=== PATIENT | male | born 1945 | race Caucasian/White ===

== ENCOUNTER 2023-08-12 08:03 | Outpatient (CLI) | payer MEDICARE ==
[2023-08-12] MEDS ORDERED: Iopamidol-370 76% 500 ML MDV (1 ML CHARGE) ONE (13:21)
== END 2023-08-12 08:04 | disposition home or self-care (01) ==
LOC: BICCT 08:03
PROVIDERS: ATTEND Internal Medicine
DX: K62.89 Other specified diseases of anus and rectum (principal)
CPT/HCPCS: 74177; 82565; Q9967

== ENCOUNTER 2025-05-19 08:21 | Outpatient (CLI) | payer OTHER ==
[2025-05-19 08:52] LABS: Estimated GFR - POC 77.0
[2025-05-19] MEDS ORDERED: Iopamidol 370 76% 100 ML VIAL ONE (12:00)
== END 2025-05-19 08:22 | disposition home or self-care (01) ==
LOC: CT 08:21
PROVIDERS: ATTEND Internal Medicine Hematology & Oncology
DX: D70.8 Other neutropenia (principal); C61 Malignant neoplasm of prostate; C20 Malignant neoplasm of rectum; J98.4 Other disorders of lung; Z95.828 Presence of other vascular implants and grafts; N62 Hypertrophy of breast; N32.89 Other specified disorders of bladder; I70.0 Atherosclerosis of aorta; I70.8 Atherosclerosis of other arteries; M19.90 Unspecified osteoarthritis, unspecified site; K59.00 Constipation, unspecified; M79.89 Other specified soft tissue disorders; Z90.79 Acquired absence of other genital organ(s); Z98.890 Other specified postprocedural states
CPT/HCPCS: 36415; 71260; 74177; 82565 ×2; Q9967